=== PATIENT | male | born 1970 | race Caucasian/White ===

== ENCOUNTER 2020-05-11 00:07 | Emergency (ER) | payer SELFPAY ==
[2020-05-11] MEDS ORDERED: KETOROLAC 30 MG/ML INJ ONE (00:37)
[2020-05-11] MEDS ORDERED: NA CHLORIDE 0.9% 1,000 ML ONE (00:37)
[2020-05-11 00:41] LABS: Absolute Lymphocytes (CBC) 3.8 K/uL (0.7-4.9); Basophils % 0.5 % (0-1.3); Hematocrit 46.9 % (39.6-49.0); Lymphocytes % 28.8 % (15.3-44.8); MPV 8.9 fL (7.6-11.3); RBC Red Blood Cell Count 5.08 M/uL (4.33-5.43)
[2020-05-11] MEDS ORDERED: FENTANYL CITR 100 MCG/2 ML ONE (00:56)
[2020-05-11 01:03] LABS: ALT/SGPT 43 U/L (12-78); AST/SGOT 21 U/L (15-37); Albumin 4.2 g/dL (3.4-5.0); Alkaline Phosphatase 98 U/L (45-117); BUN Blood Urea Nitrogen 19 mg/dL (7-18); Bicarbonate 23 mmol/L (21-32); Bilirubin Direct < 0.1 mg/dL (0-0.2); Bilirubin Total 0.3 mg/dL (0.2-1.0); Glucose Level 166 mg/dL (74-106); Lipase 70 U/L (73-393); Potassium 3.4 mmol/L (3.5-5.1); Protein, Total 8.4 g/dL (6.4-8.2); Sodium Level 140 mmol/L (136-145)
[2020-05-11] MEDS ORDERED: NA CHLORIDE 0.9% 500 ML ONE (02:38)
[2020-05-11 02:49] LABS: Urine Blood 3+ (NEG); Urine Glucose NEGATIVE (NEG); Urine Protein 2+ (NEG); Urine Specific Gravity >1.030 (1.005-1.030)
[2020-05-11 03:02] LABS: Urine Bacteria <20 /HPF (NONE SEEN); Urine Culture Reflex Order NOT NEEDED; Urine Mucus 1+ /HPF (NONE SEEN); Urine RBC LOADED /HPF (NONE SEEN)
[2020-05-11] MEDS ORDERED: HYDROMORPHONE HCL 1 MG/ML INJ ONE (03:29)
--- NOTE | 2020-05-11 05:57 | EDPHYS ---
Physician Documentation [facility] Name: Ayad Guillen Age: 50 yrs Sex: Male : 1970 Arrival Date: 05/11/2020 Time: 00:09 Bed 7 Private MD: ED Physician Kris Rivas HPI: 05/11 00:51 This 50 yrs old Male presents to ER via Ambulatory with complaints of tw4 Possible Kidney Stone. 00:51 The patient presents with scrotal pain, of the right side. Onset: The symptoms/episode tw4 began/occurred today, 2 hour(s) ago. Modifying factors: The symptoms are alleviated by nothing, the symptoms are aggravated by nothing. Associated signs and symptoms: The patient has no apparent associated signs or symptoms. Severity of symptoms: At their worst the symptoms were severe, incapacitating, in the emergency department the symptoms are unchanged. The patient has not experienced similar symptoms in the past. Historical: - Allergies: 00:41 No Known Allergies; lp1 - Home Meds: 00:41 Aspirin Oral [Active]; lp1 - PMHx: 00:41 Hyperlipidemia; lp1 - PSHx: 00:41 Cholecystectomy; Heart stents; lp1 - Immunization history:: Adult Immunizations up to date. - Social history:: Smoking status: Patient reports the use of cigarette tobacco products, smokes one-half pack cigarettes per day. ROS: 00:51 Constitutional: Negative for fever, chills, and weight loss, Eyes: Negative for injury, tw4 pain, redness, and discharge, Cardiovascular: Negative for chest pain, palpitations, and edema, Respiratory: Negative for shortness of breath, cough, wheezing, and pleuritic chest pain, Abdomen/GI: Negative for abdominal pain, nausea, vomiting, diarrhea, and constipation, Back: Negative for injury and pain, Skin: Negative for injury, rash, and discoloration, Neuro: Negative for headache, weakness, numbness, tingling, and seizure. 00:51 : Positive for testicular pain Exam: 00:51 Constitutional: This is a well developed, well nourished patient who is awake, alert, tw4 and in no acute distress. Head/Face: Normocephalic, atraumatic. Chest/axilla: Normal chest wall appearance and motion. Nontender with no deformity. No lesions are appreciated. Cardiovascular: Regular rate and rhythm with a normal S1 and S2. No gallops, murmurs, or rubs. Normal PMI, no JVD. No pulse deficits. Respiratory: Lungs have equal breath sounds bilaterally, clear to auscultation and percussion. No rales, rhonchi or wheezes noted. No increased work of breathing, no retractions or nasal flaring. Abdomen/GI: Soft, non-tender, with normal bowel sounds. No distension or tympany. No guarding or rebound. No evidence of tenderness throughout. Back: No spinal tenderness. No costovertebral tenderness. Full range of motion. MS/ Extremity: Pulses equal, no cyanosis. Neurovascular intact. Full, normal range of motion. Neuro: Awake and alert, GCS 15, oriented to person, place, time, and situation. Cranial nerves II-XII grossly intact. Motor strength 5/5 in all extremities. Sensory grossly intact. Cerebellar exam normal. Normal gait. Psych: Awake, alert, with orientation to person, place and time. Behavior, mood, and affect are within normal limits. Vital Signs: 00:35 BP 150 / 95; Pulse 130; Resp 20; Temp 98.8(TE); Pulse Ox 100% on R/A; Weight 83.91 kg lp1 (R); Pain 9/10; 01:35 BP 119 / 69; Pulse 106; Resp 16; Pulse Ox 100% ; rr5 02:30 BP 110 / 63; Pulse 95; Resp 17; Pulse Ox 98% ; Pain 8/10; rr5 03:30 BP 121 / 89; Pulse 89; Resp 17; Pulse Ox 98% ; Pain 8/10; rr5 04:45 BP 125 / 75; Pulse 74; Resp 19; Temp 98.4; Pulse Ox 99% ; Pain 4/10; rr5 05:15 BP 118 / 79; Pulse 89; Resp 15; Pulse Ox 98% ; Pain 4/10; rr5 06:00 BP 112 / 85; Pulse 70; Resp 16; Pulse Ox 98% on R/A; Pain 4/10; rr5 MDM: 00:20 Patient medically screened. tw4 05:54 Differential diagnosis: appendicitis, Kinney catheter problem, prostatitis. Data tw4 reviewed: vital signs, nurses notes. Data reviewed: lab test result(s), CBC, electrolytes, radiologic studies, CT scan, ultrasound. Data interpreted: Pulse oximetry: Interpretation: normal. Counseling: I had a detailed discussion with the patient and/or guardian regarding: the historical points, exam findings, and any diagnostic results supporting the discharge/admit diagnosis, lab results, radiology results. Medication response: Toradol partially relieved the patient's pain, fentanyl, dilaudid. Response to treatment: the patient's symptoms have resolved after treatment, and as a result, I will discharge patient. Special discussion: I discussed with the patient/guardian in detail that at this point there is no indication for admission to the hospital. It is understood, however, that if the symptoms persist or worsen the patient needs to return immediately for re-evaluation. 05/11 00:20 Order name: Basic Metabolic Panel 05/11 00:20 Order name: CBC with Diff 05/11 00:20 Order name: Hepatic Function 05/11 00:20 Order name: Lipase; Complete Time: 03:16 [facility] 05/11 03:16 Interpretation: Normal except: LIP 70. 05/11 00:20 Order name: Urine Microscopic Only; Complete Time: 03:16 [facility] 05/11 03:17 Interpretation: Normal except: URBC LOADED. 05/11 00:21 Order name: Basic Metabolic Panel; Complete Time: 03:16 [facility] 05/11 03:17 Interpretation: Normal except: K 3.4; CL 109; GLUC 166; BUN 19; GFR 69. 05/11 00:21 Order name: CBC with Automated Diff; Complete Time: 03:16 [facility] 05/11 03:17 Interpretation: Normal except: WBC 13.2. 05/11 00:21 Order name: Liver (Hepatic) Function; Complete Time: 03:16 [facility] 05/11 03:18 Interpretation: Normal except: TP 8.4; GLOB 4.2; A/G 1.0. 05/11 00:27 Order name: CT Stone Protocol 05/11 02:40 Order name: Urine Dipstick--Ancillary (enter results); Complete Time: 03:16 nc 05/11 03:19 Interpretation: Normal except: USPGR >1.030; UBLD 3+; UPROT 2+. 05/11 03:16 Order name: US Scrotum Testicles 05/11 00:20 Order name: IV Saline Lock; Complete Time: 00:4 05/11 00:20 Order name: Labs collected and sent; Complete Time: 4 05/11 00:20 Order name: Urine Dipstick-Ancillary (obtain specimen); Complete Time: 04:03 tw4 Administered Medications: 00:34 Drug: NS 0.9% 1000 ml Route: IV; Rate: 1 bolus; Site: right antecubital; rr5 01:30 Follow up: Response: No adverse reaction; IV Status: Completed infusion; IV Intake: rr5 1000ml 00:35 Drug: TORadol 30 mg Route: IVP; Site: right antecubital; rr5 00:54 Follow up: Response: No adverse reaction; No change in condition; Pain is unchanged, rr5 physician notified 00:54 Drug: fentaNYL (PF) 50 mcg {Note: rass 0.} Route: IVP; Site: right antecubital; rr5 01:20 Follow up: Response: No adverse reaction; Pain is decreased; RASS: Alert and Calm (0) rr5 02:28 Drug: fentaNYL (PF) 50 mcg {Note: rass 0.} Route: IVP; Site: right antecubital; rr5 03:00 Follow up: Response: No adverse reaction; RASS: Alert and Calm (0) rr5 03:25 Drug: Dilaudid 1 mg {Note: rass 0.} Route: IVP; Site: right antecubital; rr5 03:55 Follow up: Response: No adverse reaction; Pain is decreased; RASS: Alert and Calm (0) rr5 Disposition: 05/11/20 05:56 Discharged to Home. Impression: Calculus of ureter, Hematuria. - Condition is Stable. - Discharge Instructions: Kidney Stones, Renal Colic. - Prescriptions for Ibuprofen 800 mg Oral Tablet - take 1 tablet by ORAL route every 8 hours As needed take with food; 30 tablet. Tylenol- Codeine #3 300-30 mg Oral Tablet - take 2 tablet by ORAL route every 6 hours As needed; 30 tablet. Zofran 4 mg Oral Tablet - take 1 tablet by ORAL route every 12 hours As needed; 6 tablet. Flomax 0.4 mg Oral Capsule, Sust. Release 24 hr - take 1 capsule by ORAL route once daily 1/2 hour following the same meal each day; 30 capsule. Tramadol 50 mg Oral Tablet - take 1 tablet by ORAL route every 8 hours as needed; 12 tablet. - Medication Reconciliation Form, Thank You Letter, Antibiotic Education, Prescription Opioid Use form. - Follow up: Private Physician; When: Upon discharge from the Emergency Department; Reason: Recheck today's complaints, Continuance of care, Re-evaluation by your physician. Follow up: Garrison Chow MD; When: Upon discharge from the Emergency Department; Reason: Recheck today's complaints, Continuance of care, Re-evaluation by your physician. Follow up: Ame Antony MD; When: Upon discharge from the Emergency Department; Reason: Recheck today's complaints, Continuance of care, Re-evaluation by your physician. Follow up: Ren Noriega MD; When: Upon discharge from the Emergency Department; Reason: Recheck today's complaints, Continuance of care, Re-evaluation by your physician. - Problem is new. - Symptoms have improved. Signatures: Dispatcher [employer] EDMS Frida Cole RN RN lp1 Kris Rivas MD MD tw4 Deonte Llamas RN RN rr5 Corrections: (The following items were deleted from the chart) 05:59 05:56 05/11/2020 05:56 Discharged to Home. Impression: Calculus of ureter; Hematuria. tw4 Condition is Stable. Forms are Medication Reconciliation Form, Thank You Letter, Antibiotic Education, Prescription Opioid Use. Follow up: Private Physician; When: Upon discharge from the Emergency Department; Reason: Recheck today's complaints, Continuance of care, Re-evaluation by your physician. Problem is new. Symptoms have improved. tw4 06:15 05:59 05/11/2020 05:56 Discharged to Home. Impression: Calculus of ureter; Hematuria. rr5 Condition is Stable. Discharge Instructions: Kidney Stones, Renal Colic. Prescriptions for Ibuprofen 800 mg Oral Tablet - take 1 tablet by ORAL route every 8 hours As needed take with food; 30 tablet, Tylenol-Codeine #3 300-30 mg Oral Tablet - take 2 tablet by ORAL route every 6 hours As needed; 30 tablet, Zofran 4 mg Oral Tablet - take 1 tablet by ORAL route every 12 hours As needed; 6 tablet, Flomax 0.4 mg Oral Capsule, Sust. Release 24 hr - take 1 capsule by ORAL route once daily 1/2 hour following the same meal each day; 30 capsule, Tramadol 50 mg Oral Tablet - take 1 tablet by ORAL route every 8 hours as needed; 12 tablet. and Forms are Medication Reconciliation Form, Thank You Letter, Antibiotic Education, Prescription Opioid Use. Follow up: Private Physician; When: Upon discharge from the Emergency Department; Reason: Recheck today's complaints, Continuance of care, Re-evaluation by your physician. Follow up: Garrison Chow; When: Upon discharge from the Emergency Department; Reason: Recheck today's complaints, Continuance of care, Re-evaluation by your physician. Follow up: Ame Antony; When: Upon discharge from the Emergency Department; Reason: Recheck today's complaints, Continuance of care, Re-evaluation by your physician. Follow up: Ren Noriega; When: Upon discharge from the Emergency Department; Reason: Recheck today's complaints, Continuance of care, Re-evaluation by your physician. Problem is new. Symptoms have improved. tw4
--- NOTE | 2020-05-11 05:57 | ER ---
Nurse's Notes [facility] Name: Ayad Guillen Age: 50 yrs Sex: Male : 1970 Arrival Date: 05/11/2020 Time: 00:09 Bed 7 Private MD: Diagnosis: Calculus of ureter;Hematuria Presentation: 05/11 00:35 Chief complaint: Patient states: Pain to RLQ of abdomen that began an hour and a half lp1 ago; States diagnosed with 3-4 mm kidney stone a couple months ago, states has not passed it. Coronavirus screen: Proceed with normal triage. Ebola Screen: No symptoms or risks identified at this time. Initial Sepsis Screen: Does the patient meet any 2 criteria? No. Patient's initial sepsis screen is negative. Does the patient have a suspected source of infection? No. Patient's initial sepsis screen is negative. Risk Assessment: Do you want to hurt yourself or someone else? Patient reports no desire to harm self or others. Onset of symptoms was May 10, 2020 at 23:00. 00:35 Method Of Arrival: Ambulatory lp1 00:35 Acuity: GARY 3 lp1 Historical: - Allergies: 00:41 No Known Allergies; lp1 - Home Meds: 00:41 Aspirin Oral [Active]; lp1 - PMHx: 00:41 Hyperlipidemia; lp1 - PSHx: 00:41 Cholecystectomy; Heart stents; lp1 - Immunization history:: Adult Immunizations up to date. - Social history:: Smoking status: Patient reports the use of cigarette tobacco products, smokes one-half pack cigarettes per day. Screenin:35 Abuse screen: Denies threats or abuse. Denies injuries from another. Nutritional rr5 screening: No deficits noted. Tuberculosis screening: No symptoms or risk factors identified. Fall Risk IV access (20 points). Total Crawford Fall Scale indicates No Risk (0-24 pts). Assessment: 00:56 General: Appears uncomfortable, Behavior is calm, cooperative. Pain: Complains of pain rv in right inguinal area. Neuro: Level of Consciousness is awake, alert, obeys commands, Oriented to person, place, time, situation. Cardiovascular: Patient's skin is warm and dry. Respiratory: Airway is patent. GI: Bowel sounds present X 4 quads. Abd is soft and non tender X 4 quads. Derm: Skin is healthy with good turgor. 01:35 Reassessment: Patient appears in no apparent distress at this time. awaiting for CT rr5 result Patient states feeling better. Patient states symptoms have improved. 02:25 Reassessment: Patient appears in no apparent distress at this time. Patient is alert, rr5 oriented x 3, equal unlabored respirations, skin warm/dry/pink. complaining of still in pain. ED provider aware with order made and carried out. Patient states symptoms have not improved. 02:50 Reassessment: Patient appears in no apparent distress at this time. Patient and/or rr5 family updated on plan of care and expected duration. Pain level reassessed. Patient states symptoms have improved. 03:10 Reassessment: Patient appears in no apparent distress at this time. complaining of rr5 still in pain pain score 8/10. ED provider aware with order made and carried out. Patient states symptoms have not improved. 03:40 Reassessment: Patient appears in no apparent distress at this time. Patient is alert, rr5 oriented x 3, equal unlabored respirations, skin warm/dry/pink. Patient states feeling better. Patient states symptoms have improved. 04:30 Reassessment: Patient appears in no apparent distress at this time. Patient is alert, rr5 oriented x 3, equal unlabored respirations, skin warm/dry/pink. awaiting for ultrasound result. 05:10 Reassessment: Patient appears in no apparent distress at this time. Patient and/or rr5 family updated on plan of care and expected duration. Pain level reassessed. Patient is alert, oriented x 3, equal unlabored respirations, skin warm/dry/pink. 06:10 Reassessment: Patient appears in no apparent distress at this time. Patient is alert, rr5 oriented x 3, equal unlabored respirations, skin warm/dry/pink. discharge instruction given and explained without complaints made. Patient states symptoms have improved. Vital Signs: 00:35 BP 150 / 95; Pulse 130; Resp 20; Temp 98.8(TE); Pulse Ox 100% on R/A; Weight 83.91 kg lp1 (R); Pain 9/10; 01:35 BP 119 / 69; Pulse 106; Resp 16; Pulse Ox 100% ; rr5 02:30 BP 110 / 63; Pulse 95; Resp 17; Pulse Ox 98% ; Pain 8/10; rr5 03:30 BP 121 / 89; Pulse 89; Resp 17; Pulse Ox 98% ; Pain 8/10; rr5 04:45 BP 125 / 75; Pulse 74; Resp 19; Temp 98.4; Pulse Ox 99% ; Pain 4/10; rr5 05:15 BP 118 / 79; Pulse 89; Resp 15; Pulse Ox 98% ; Pain 4/10; rr5 06:00 BP 112 / 85; Pulse 70; Resp 16; Pulse Ox 98% on R/A; Pain 4/10; rr5 ED Course: 00:09 Patient arrived in ED. cl3 00:20 Kris Rivas MD is Attending Physician. tw4 00:25 Inserted saline lock: 20 gauge in right antecubital area, using aseptic technique. lp1 Blood collected. 00:30 Deonte Llamas RN is Primary Nurse. rr5 00:35 Patient has correct armband on for positive identification. Bed in low position. Call rr5 light in reach. Pulse ox on. NIBP on. 00:35 Arm band placed on. lp1 00:37 Triage completed. lp1 01:40 CT Stone Protocol In Process Unspecified. EDMS 03:00 Urine collected: clean catch specimen, clear. rr5 03:19 Patient taken to ultrasound. via wheelchair. lc3 03:57 Ultrasound completed. Patient tolerated well. Patient moved back from ultrasound. lc3 03:58 US Scrotum Testicles In Process Unspecified. EDMS 04:50 No provider procedures requiring assistance completed. rr5 05:58 Garrison Chow MD is Referral Physician. tw4 05:58 Ame Antony MD is Referral Physician. tw4 05:58 Ren Noriega MD is Referral Physician. tw4 06:13 IV discontinued, intact, bleeding controlled, No redness/swelling at site. Pressure rr5 dressing applied. Administered Medications: 00:34 Drug: NS 0.9% 1000 ml Route: IV; Rate: 1 bolus; Site: right antecubital; rr5 01:30 Follow up: Response: No adverse reaction; IV Status: Completed infusion; IV Intake: rr5 1000ml 00:35 Drug: TORadol 30 mg Route: IVP; Site: right antecubital; rr5 00:54 Follow up: Response: No adverse reaction; No change in condition; Pain is unchanged, rr5 physician notified 00:54 Drug: fentaNYL (PF) 50 mcg {Note: rass 0.} Route: IVP; Site: right antecubital; rr5 01:20 Follow up: Response: No adverse reaction; Pain is decreased; RASS: Alert and Calm (0) rr5 02:28 Drug: fentaNYL (PF) 50 mcg {Note: rass 0.} Route: IVP; Site: right antecubital; rr5 03:00 Follow up: Response: No adverse reaction; RASS: Alert and Calm (0) rr5 03:25 Drug: Dilaudid 1 mg {Note: rass 0.} Route: IVP; Site: right antecubital; rr5 03:55 Follow up: Response: No adverse reaction; Pain is decreased; RASS: Alert and Calm (0) rr5 Intake: 01:30 IV: 1000ml; Total: 1000ml. rr5 Outcome: 05:56 Discharge ordered by . tw4 06:13 Discharged to home ambulatory. rr5 06:13 Condition: stable 06:13 Discharge instructions given to patient, Instructed on discharge instructions, follow up and referral plans. medication usage, advised not to drive, patient aware and replied his will come to pick him up. Demonstrated understanding of instructions, follow-up care, medications, Prescriptions given X 4. 06:15 Patient left the ED. rr5 Signatures: Dispatcher [employer] EDMS Frida Cole RN RN lp1 Micky Giron Terrence, MD MD tw4 Aaron Arellano RN RN rv Roque, Raymond, RN RN rr5 Zeke Mata cl3
[2020-05-11 06:40] VITALS: TEMP 98.4
[2020-05-11 06:41] VITALS: O2SAT 98
[2020-05-11 06:42] VITALS: BP 112/85
--- NOTE | 2020-05-11 18:06 | RAD REPORT ---
EXAM DESCRIPTION: CT - Stone Protocol - 05/11/2020 5:23 am CLINICAL HISTORY: FLANK PAIN COMPARISON: None Available. TECHNIQUE: CT of the abdomen and pelvis without IV contrast. Evaluation of the solid organs and vasc ulature is suboptimal due to lack of IV contrast. FINDINGS: Lung Bases: The visualized lung bases are clear. Bones: Mild degenerative endplate spondylosis. Abdomen: Liver: The liver has normal size and density. Gallbladder: Prior cholecystectomy. Spleen, Pancreas, and Adrenal Glands: The spleen, pancreas, and adrenal glands are unremarkable. Kidneys: The kidneys have normal size without evidence of hydronephrosis. No obstructing ureteral herminia culi. Punctate nonobstructing right nephrolithiasis. Vasculature: Aortoiliac atherosclerosis. IVC is unremarkable. Stomach: The stomach and duodenum have normal course. Other: No free intraperitoneal air. No free fluid or lymphadenopathy. Pelvis: Bladder: Urinary bladder is unremarkable. Bowel: No dilated loops of large or small bowel. Scattered diverticula of the colon. No pericolic i nflammatory change. Appendix: Normal appendix. Pelvis: Prostate is not enlarged. IMPRESSION: 1. No acute inflammatory or obstructive process identified. 2. Nonobstructing right nephrolithiasis. 3. Diverticulosis without evidence of acute diverticulitis. This exam was performed according to our departmental dose-optimization program, which includes autom ated exposure control, adjustment of the mA and/or kV according to patient size and/or use of iterati ve reconstruction technique. Electronically signed by: Morris Cabral 05/11/2020 1:49 AM CDT Due to temporary technical issues with the PACS/Fluency reporting system, reports are being signed by the in house radiologist without review as a courtesy to ensure prompt reporting. The interpreting r adiologist is fully responsible for the content of the report.
--- NOTE | 2020-05-11 18:45 | RAD REPORT ---
EXAM DESCRIPTION: US - Scrotum Testicles - 05/11/2020 3:57 am CLINICAL HISTORY: 50 years Male, PAIN COMPARISON: None. TECHNIQUE: Real-time sonographic images of the scrotal contents obtained using a linear multi hertz transducer. Color and spectral Doppler imaging was also obtained. FINDINGS: Testicles: The right testicle measures 4.0 x 2.4 x 3.0 cm. The left testicle measures 3.7 x 2.0 x 2.6 cm. No solid intratesticular mass identified. Homogenous echogenicity of the testicles. Epididymis: Right epididymal cyst measuring 0.8 cm. Hydrocele: Small bilateral hydroceles. Blood flow: Normal arterial and venous blood flow identified bilaterally. Other: Calcification in the left scrotum with minimal debris in the left hydrocele. Small fat-contain ing right inguinal hernia. IMPRESSION: 1. Blood flow identified in the testicles bilaterally. 2. Small bilateral hydroceles. 3. Small fat-containing right inguinal hernia. Electronically signed by: Morris Cabral 05/11/2020 5:02 AM CDT Due to temporary technical issues with the PACS/Fluency reporting system, reports are being signed by the in house radiologist without review as a courtesy to ensure prompt reporting. The interpreting r adiologist is fully responsible for the content of the report.
== END 2020-05-11 06:15 | disposition home or self-care (01) ==
LOC: ER 00:07
DX: N20.1 Calculus of ureter (principal); E78.5 Hyperlipidemia, unspecified; F17.210 Nicotine dependence, cigarettes, uncomplicated; Z79.82 Long term (current) use of aspirin; Z95.818 Presence of other cardiac implants and grafts
CPT/HCPCS: 36415; 74176; 76377; 76870; 80048; 80076; 81003; 81015; 83690; 85025; 96361; 96374; 96375; 99284; J1170; J3010; J7030; J7040